=== PATIENT | female | born 1980 | race Caucasian/White ===

== ENCOUNTER 2018-02-14 17:05 | Inpatient (IN) ==
[2018-02-14] MEDS ORDERED: MEPERIDINE 50 MG/1 ML VIAL IV ONE (17:40)
[2018-02-14] MEDS ORDERED: ONDANSETRON 4 MG/2 ML VIAL IV ONE (17:40)
[2018-02-14] MEDS: LACTATED RINGERS 1,000 ML IV SCH ×2 (18:03→22:18)
[2018-02-14 18:07] LABS: Basophils % 0.4 % (0.0-0.8); Eosinophils # 0.1 10*3/uL (0.0-0.87); Eosinophils % 0.6 % (0.00-10.9); Hematocrit 37.7 VOL% (35.7-47.0); Hemoglobin 12.5 GM/DL (12.0-16.0); Immature Granulocytes % 0.6 %; Immature Granulocytes Absolute 0.07 #; Lymphocytes # 2.1 10*3/uL (1.4-4.0); Mean Corpuscular HGB Conc 33.2 GM/DL (32-36); Mean Corpuscular Hemoglobin 31 PG (27-34); Mean Platelet Volume 11.6 FL (9.6-12.0); Monocytes # 0.7 10*3/uL (0.11-0.8); Monocytes % 6.7 % (1.7-12.7); NRBC # 0.02 10*3/uL; Neutrophils # 8.1 10*3/uL (1.4-7.4); Neutrophils % 72.7 % (38.7-73.9); Platelet Count 326 T/CUMM (130-400); Red Blood Count 4.01 MC/CUMM (3.8-5.5); Red Cell Distribution Width 13.5 % (9.3-17.3); White Blood Count 11.1 T/CUMM (4-12)
[2018-02-14 18:35] LABS: Barbiturates Screen,Urine Negative (Negative); Benzodiazepines Screen,Urine Negative (Negative); Cannabinoid Screen,Urine Negative (Negative); Opiate Screen,Urine Negative (Negative); Phencyclidine Screen,Urine Negative (Negative)
[2018-02-14 18:38] LABS: Apearance,Urine CLOUDY (Clear); Bilirubin,Urine Negative (Negative); Blood, Urine Moderate mg/dL (Negative); Glucose,Urine (UA) Negative (Negative); Ketones,Urine 5 mg/dL (Negative); Mucus,Urine Occasional /LPF (Occasional); Nitrite,Urine Negative (Negative); Protein,Urine Negative; RBC,Urine 73 /HPF (0-4); Squamous Epithelial Cell,Urine Occasional /HPF (0-10); Urine Color Yellow (Yellow); Urine Specific Gravity 1.005 (1.001-1.035); Urine Urobilinogen < 2.0 EU/DL (0.2-1.0); WBC,Urine 160 /HPF (0-6)
[2018-02-14 18:44] LABS: Alanine Aminotransferase 17 U/L (13-56); Alkaline Phosphatase 491 U/L (45-117); Aspartate Amino Transferase 21 U/L (0-37); Bilirubin,Total < 0.39 MG/DL (0.2-1.0); Blood Urea Nitrogen 5 MG/DL (7-18); Calcium 8.3 MG/DL (8.5-10.1); Glucose 75 MG/DL (74-106); Osmolality,Calculated 268.8 MOS/KG (273-304); Potassium 3.6 MMOL/L (3.5-5.1); Sodium 137 MMOL/L (136-145); Total Protein 6.5 G/DL (6.4-8.3); Uric Acid 6.5 MG/DL (2.6-6.0)
[2018-02-14 19:31] LABS: HIV Antigen/Antibody Result Nonreactive (Nonreactive); Hepatitis B Surface Ag Quant 0.26 Index; Hepatitis B Surface Ag Result Negative (Negative)
[2018-02-14] MEDS ORDERED: MEPERIDINE 50 MG/1 ML VIAL IV PRN (21:48)
[2018-02-15] MEDS ORDERED: LACTATED RINGERS 500 ML IV PRN (00:19)
[2018-02-15] MEDS ORDERED: BUTORPHANOL 2 MG/ML VIAL IV PRN (00:19)
[2018-02-15] MEDS ORDERED: PROMETHAZINE 25 MG/1 ML VIAL IM ONE (00:32)
[2018-02-15] MEDS ORDERED: hydrOXYzine HCL 25 MG/1 ML VIAL IM PRN (00:32)
[2018-02-15] MEDS ORDERED: NALOXONE 0.4 MG/ML VIAL IV PRN (00:32)
[2018-02-15] MEDS ORDERED: diphenhydrAMINE 50 MG/1 ML VIAL IV PRN ×2 (00:32)
[2018-02-15] MEDS ORDERED: ePHEDrine 50 MG/ML AMP IV PRN (00:32)
[2018-02-15] MEDS ORDERED: FAMOTIDINE 20 MG/2 ML VIAL IV ONE (00:37)
[2018-02-15] MEDS ORDERED: CITRIC ACID/SODIUM CITRATE 30 ML UDCUP PO ONE (00:37)
[2018-02-15] MEDS ORDERED: fentaNYL 2 MCG/ROPIV 0.2% EPID 100 ML EPIDURAL SCH (01:00)
[2018-02-15] MEDS ORDERED: AMPICILLIN INJ 2,000 MG in SODIUM CHLORIDE 0.9% 100 ML IV SCH (01:30)
[2018-02-15 03:51] LABS: Apearance,Urine Slightly Hazy (Clear); Bilirubin,Urine Negative (Negative); Blood, Urine Negative (Negative); Glucose,Urine (UA) Negative (Negative); Ketones,Urine 20 mg/dL (Negative); Mucus,Urine Occasional /LPF (Occasional); Nitrite,Urine Negative (Negative); Protein,Urine Negative; RBC,Urine 4 /HPF (0-4); Renal Epithelial Cells,Urine Occasional /HPF (<1); Squamous Epithelial Cell,Urine Occasional /HPF (0-10); Urine Color Yellow (Yellow); Urine Specific Gravity 1.015 (1.001-1.035); Urine Urobilinogen < 2.0 EU/DL (0.2-1.0); WBC,Urine 13 /HPF (0-6)
[2018-02-15] MEDS ORDERED: OXYTOCIN/LR 20 UNIT/1,000 ML BAG IV ONE ×2 (04:55→05:56)
[2018-02-15 05:55] LABS: Cord Arterial Blood HCO3 19.4 MMOL/L
[2018-02-15 05:56] LABS: Cord Venous Blood HCO3 23.8 MMOL/L; Cord Venous Blood PCO2 44.9 MMHG; Cord Venous Blood PO2 28.3 MMHG
[2018-02-15] MEDS ORDERED: ONDANSETRON 4 MG/2 ML VIAL IV PRN (05:56)
[2018-02-15] MEDS ORDERED: BISACODYL 10 MG SUPP RECTAL PRN (05:56)
[2018-02-15] MEDS ORDERED: LANOLIN 50% CREAM 0.3 OZ TUBE TOP PRN (05:56)
[2018-02-15] MEDS ORDERED: MEASLES/MUMPS/RUBELLA VACCINE 0.5 ML VIAL SUBCUT ONE (05:56)
[2018-02-15] MEDS ORDERED: ACETAMINOPHEN 325 MG TABLET PO PRN (05:56)
[2018-02-15] MEDS ORDERED: WITCH HAZEL PADS 100/JAR TOP PRN (05:56)
[2018-02-15] MEDS ORDERED: BENZOCAINE 20%/MENTHOL 0.5% SPRAY 56 GM CAN TOP PRN (05:56)
[2018-02-15] MEDS ORDERED: HYDROCORTISONE 2.5% RECTAL CREAM 30 GM TUBE TOP PRN (05:56)
[2018-02-15] MEDS ORDERED: DIPH/TET/ACEL PERT BOOSTER VACCINE 0.5 ML VIAL IM ONE (05:56)
[2018-02-15] MEDS ORDERED: oxyCODONE/ACETAMINOPHEN 5-325 MG TABLET PO PRN ×2 (05:56)
[2018-02-15] MEDS ORDERED: RHO(D) IMMUNE GLOBULIN 300 MCG SYRINGE IM ONE (05:56)
[2018-02-15] MEDS: IBUPROFEN 800 MG TABLET PO PRN ×2 (10:03→20:26)
[2018-02-15] MEDS: DOCUSATE SODIUM 100 MG CAPSULE PO SCH ×2 (18:12→20:24)
[2018-02-16] MEDS: IBUPROFEN 800 MG TABLET PO PRN ×2 (04:16→20:50)
[2018-02-16 05:20] LABS: Basophils # 0.1 10*3/uL (0.0-0.2); Basophils % 0.3 % (0.0-0.8); Eosinophils # 0.1 10*3/uL (0.0-0.87); Eosinophils % 0.7 % (0.00-10.9); Hematocrit 37.9 VOL% (35.7-47.0); Hemoglobin 12.2 GM/DL (12.0-16.0); Immature Granulocytes % 0.7 %; Immature Granulocytes Absolute 0.15 #; Lymphocytes # 2.5 10*3/uL (1.4-4.0); Lymphocytes % 12.2 % (21.3-54.2); Mean Corpuscular HGB Conc 32.2 GM/DL (32-36); Mean Corpuscular Hemoglobin 31 PG (27-34); Mean Corpuscular Volume 95.2 FL (87-102); Mean Platelet Volume 11.9 FL (9.6-12.0); Monocytes # 1.1 10*3/uL (0.11-0.8); Monocytes % 5.3 % (1.7-12.7); Neutrophils # 16.8 10*3/uL (1.4-7.4); Neutrophils % 80.8 % (38.7-73.9); Platelet Count 283 T/CUMM (130-400); Red Blood Count 3.98 MC/CUMM (3.8-5.5); Red Cell Distribution Width 13.9 % (9.3-17.3); White Blood Count 20.8 T/CUMM (4-12)
[2018-02-16 06:04] LABS: Lymphocytes 10 % (20-55); Myelocytes 1 %; Segmented Neutrophils 87 % (50-85)
[2018-02-16 06:05] LABS: Platelet Estimate Normal; Total Cells Counted 100
[2018-02-16] MEDS: DOCUSATE SODIUM 100 MG CAPSULE PO SCH ×2 (09:02→20:50)
[2018-02-17] MEDS: DOCUSATE SODIUM 100 MG CAPSULE PO SCH (09:42)
[2018-02-17] MEDS: IBUPROFEN 800 MG TABLET PO PRN (09:42)
[2018-02-17 11:12] VITALS: BP 109/70
== END 2018-02-17 14:25 | disposition home or self-care (01) | DRG 560 ==
LOC: N.LDOUT 17:05 → N.LD 17:07 → N.OB 02-15 09:30
PROVIDERS: ADMIT Obstetrics & Gynecology; ATTEND Obstetrics & Gynecology